=== PATIENT | male | born 2000 | race Caucasian/White ===

== ENCOUNTER 2021-10-24 01:10 | Emergency (ER) | payer SELFPAY ==
[~2021-10-24] VITALS: Ht 182.9 cm; Wt 70.0 kg
[2021-10-24] MEDS ORDERED: DOCUSATE SODIUM 100 MG CAPSULE PO ONE (01:30)
[2021-10-24] MEDS ORDERED: SODIUM PHOS/SODIUM BIPHOS 133 ML ENEMA PR ONE (01:30)
[2021-10-24] MEDS ORDERED: MINERAL OIL 133 ML ENEMA PR ONE ×2 (01:45→03:00)
[2021-10-24] MEDS ORDERED: DOCU-385 PO (03:07)
[2021-10-24 03:52] VITALS: BP 133/85
== END 2021-10-24 03:58 | disposition home or self-care (01) ==
LOC: EMS 01:14
DX: K60.2 Anal fissure, unspecified (principal)
CPT/HCPCS: 99284; Z7502; Z7610